=== PATIENT | female | born 1955 | race Caucasian/White ===

== ENCOUNTER → 2020-02-22 | Outpatient (CLI) | payer MEDICARE, OTHER ==
[~2020-02-22] MED LIST: AMLODIPINE BESY10 MG PO; ATENOLOL100 MG PO; CRESTOR40 MG PO; DULOXETINE HCL60 MG PO; ECOTRIN81 MG PO; GLUCOPHAGE XR500 M1 PO; HYDROCODON-ACE1 EAC4 PO; LEVOTHYROXINE100 MCG PO; NAPROXEN250 MG PO; OMEPRAZOLE20 MG PO
[2020-02-22 12:59] LABS: HEMOGLOBIN 14.2 gm/dl (12.3-15.3); RED BLOOD COUNT 5.07 M/UL (4.00-5.10)
[2020-02-22 13:20] LABS: BUN/CREATININE RATIO 14 (0-10)
== END ==
LOC: OPSV2 11:57
PROVIDERS: Obstetrics & Gynecology
DX: Z01.818 Encounter for other preprocedural examination (principal); N39.3 Stress incontinence (female) (male); R00.1 Bradycardia, unspecified
CPT/HCPCS: 36415; 80048; 81001; 85025; 93005

== ENCOUNTER 2020-03-01 10:05 | Day surgery (SDC) | payer MEDICARE, OTHER ==
[~2020-03-01] VITALS: Ht 157.5 cm; Wt 86.2 kg
[2020-03-01] MEDS ORDERED: DULOXETINE HCL60 MG PO (11:10)
[2020-03-01] MEDS ORDERED: CRESTOR40 MG PO (11:11)
[2020-03-01] MEDS ORDERED: GLUCOPHAGE XR500 M1 PO (11:11)
[2020-03-01] MEDS ORDERED: LEVOTHYROXINE100 MCG PO (11:12)
[2020-03-01] MEDS ORDERED: AMLODIPINE BESY10 MG PO (11:12)
[2020-03-01] MEDS ORDERED: ATENOLOL100 MG PO (11:12)
[2020-03-01] MEDS ORDERED: OMEPRAZOLE20 MG PO (11:13)
[2020-03-01] MEDS ORDERED: ECOTRIN81 MG PO (11:13)
[2020-03-01] MEDS ORDERED: HYDROCODON-ACE1 EAC4 PO (13:34)
[2020-03-02 03:49] LABS: HEMOGLOBIN 12.6 gm/dl (12.3-15.3)
[2020-03-02 04:08] LABS: BUN/CREATININE RATIO 11 (0-10)
[2020-03-02] MEDS ORDERED: NAPROXEN250 MG PO (11:42)
== END 2020-03-02 12:41 | disposition home or self-care (01) ==
LOC: M/S 10:05 → OR 10:05 → M/S 16:52 → OR 03-02 12:41
PROVIDERS: Internal Medicine; Obstetrics & Gynecology
PROC: 0TSC0ZZ Reposition Bladder Neck, Open Approach (ICD-10-PCS; principal; 2020-03-01 12:45)
DX: N39.3 Stress incontinence (female) (male) (principal); N32.89 Other specified disorders of bladder; R30.0 Dysuria; F41.1 Generalized anxiety disorder; E66.9 Obesity, unspecified; K21.9 Gastro-esophageal reflux disease without esophagitis; F32.9 Major depressive disorder, single episode, unspecified; I10 Essential (primary) hypertension; E78.5 Hyperlipidemia, unspecified; E03.9 Hypothyroidism, unspecified; E11.9 Type 2 diabetes mellitus without complications; G47.33 Obstructive sleep apnea (adult) (pediatric); M79.7 Fibromyalgia; M19.90 Unspecified osteoarthritis, unspecified site; Z88.2 Allergy status to sulfonamides; Z79.84 Long term (current) use of oral hypoglycemic drugs; Z79.899 Other long term (current) drug therapy; Z20.822 Contact with and (suspected) exposure to COVID-19
CPT/HCPCS: 80048; 82962; 85014; 85018; C1769; C1771; J0690; J1170; J2250; J2270; J2405; J2704; J3010; J7030; J7120